=== PATIENT | male | born 1965 | race Two or more races ===

== ENCOUNTER 2019-06-09 22:23 | Emergency (ER) | payer SELFPAY ==
[~2019-06-09] VITALS: Ht 160 cm; Wt 74.4 kg
[2019-06-09 22:52] VITALS: BP 143/74
[2019-06-09] MEDS ORDERED: GUAIFENESIN/D-METHORPHAN HB 5 ML UDC ONE ×2 (23:18→23:21)
--- NOTE | 2019-06-09 23:24 | NUR ---
MEDICATION SPILLED ON FLOOR, REPULLED MEDICATION
[2019-06-09] MEDS ORDERED: GUAIFENESIN/D-METHORPHAN HB 5 ML UDC PO ONE (23:30)
== END 2019-06-09 23:25 | disposition home or self-care (01) ==
LOC: ER 22:26
DX: J06.9 Acute upper respiratory infection, unspecified (principal)

== ENCOUNTER 2020-07-30 06:37 | Emergency (ER) | payer BC, OTHER ==
[~2020-07-30] VITALS: Ht 160 cm; Wt 69.9 kg
--- NOTE | 2020-07-30 06:42 | NUR ---
pt bibself c/o of middle back pain s/p heavy lifting. Pt aaox4 breathing evenly and unlabored. Pt skin warm, dry, and intact. Pt states "i think i turned weird when i lifted". Pt had been taking otc meds for pain, but stopped taking the meds when he felt no relief. Pt attached to the monitor and pox. pt given blanket and calllight within reach
--- NOTE | 2020-07-30 07:11 | NUR ---
wheeled patient to ct
[2020-07-30] MEDS ORDERED: HYDR-4275 PO (07:22)
[2020-07-30] MEDS ORDERED: CARI350T PO (07:22)
--- NOTE | 2020-07-30 07:26 | NUR ---
patient back from ct
[2020-07-30 08:30] VITALS: BP 140/74
--- NOTE | 2020-07-30 08:31 | NUR ---
PATIENT A/OX4, AMBULATORY WITH STEADY GAIT. NO DISTRESS NOTED. DISCHARGE INSTRUCTIONS PROVIDED IN [facility], TRANSLATED BY [facility]. PATIENT VERBALIZED UNDERSTANDING OF DISCHARGE INSTRUCTIONS.
== END 2020-07-30 08:33 | disposition home or self-care (01) ==
LOC: ER 06:41
DX: S33.5XXA Sprain of ligaments of lumbar spine, initial encounter (principal); Z79.899 Other long term (current) drug therapy; X58.XXXA Exposure to other specified factors, initial encounter; Y93.89 Activity, other specified; Y92.89 Other specified places as the place of occurrence of the external cause; Y99.8 Other external cause status
CPT/HCPCS: 72110-TC

== ENCOUNTER 2022-02-18 13:28 | Emergency (ER) | payer BC, OTHER ==
[~2022-02-18] VITALS: Ht 160 cm; Wt 77.1 kg
[~2022-02-18 13:28] MED LIST: CARI350T PO; HYDR-4275 PO
[2022-02-18 13:34] VITALS: BP 151/81
[2022-02-18] MEDS ORDERED: PHEN26CR2 RC (14:46)
[2022-02-18] MEDS ORDERED: BISA-79 PO (14:46)
--- NOTE | 2022-02-18 14:54 | NUR ---
Patient discharged to home in stable condition. Written and verbal after care instructions given. Patient verbalizes understanding of instruction.
== END 2022-02-18 14:54 | disposition home or self-care (01) ==
LOC: ER 13:30
DX: K64.9 Unspecified hemorrhoids (principal); Z79.899 Other long term (current) drug therapy

== ENCOUNTER 2023-04-14 18:13 | Emergency (ER) | payer BC, OTHER ==
[~2023-04-14] VITALS: Ht 167.6 cm; Wt 74.8 kg
[~2023-04-14 18:13] MED LIST changes: +BISA-79 PO; +PHEN26CR2 RC
[2023-04-14] MEDS ORDERED: [UNRECOGNIZED DRUG - CODE] PO (18:43)
[2023-04-14] MEDS ORDERED: IBUP-1955 PO (18:43)
[2023-04-14] MEDS ORDERED: ACET-2605 PO (18:43)
[2023-04-14] MEDS ORDERED: BENZ-13 PO (18:43)
[2023-04-14] MEDS ORDERED: BENZONATATE 100 MG CAPSULE PO ONE (18:54)
[2023-04-14] MEDS ORDERED: diphenhydrAMINE HCL 25 MG CAPSULE ONE (18:55)
[2023-04-14] MEDS ORDERED: DIPHENHYDRAMINE HCL 12.5 MG/5 ML UDC PO ONE (19:00)
[2023-04-14] MEDS ORDERED: BENZONATATE 100 MG CAPSULE PO PRN (19:00)
[2023-04-14 19:10] VITALS: BP 130/76; TEMP 99; O2SAT 96
== END 2023-04-14 19:11 | disposition home or self-care (01) ==
LOC: ER 18:20
DX: J98.8 Other specified respiratory disorders (principal); Z79.899 Other long term (current) drug therapy; Z20.822 Contact with and (suspected) exposure to COVID-19
CPT/HCPCS: 99283; 87426; 87804 ×2; Q0163 ×2; C9803